=== PATIENT | female | born 2005 | race Caucasian/White ===

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

== ENCOUNTER 2024-10-15 23:53 | Emergency (ER) | payer BC, OTHER ==
[2024-10-16 00:14] VITALS: BP 121/82; PULSE 81
== END 2024-10-16 02:56 | disposition home or self-care (01) ==
LOC: MW.ED 23:53
DX: S46.911A Strain of unspecified muscle, fascia and tendon at shoulder and upper arm level, right arm, initial encounter (principal); Z75.8 Other problems related to medical facilities and other health care; X58.XXXA Exposure to other specified factors, initial encounter
CPT/HCPCS: 99284